=== PATIENT | female | born 1975 | race Caucasian/White ===

== ENCOUNTER 2023-01-14 07:37 | Outpatient (OUT) | payer BC, SELFPAY ==
[2023-01-14 07:52] LABS: Basophils Absolute Auto 0.1 10^3/uL (0.0-0.1); Basophils Percent Auto 0.8 % (0.2-2.0); Eosinophils Absolute Auto 0.1 10^3/uL (0.0-0.7); Hematocrit 37.8 % (36.0-48.0); Hemoglobin 12.7 g/dL (12.0-16.0); Immature Granulocytes Abs Auto 0.03 10^3/uL (0.00-0.03); Immature Granulocytes Pct Auto 0.5 % (0.0-0.5); Lymphocytes Absolute Auto 1.4 10^3/uL (1.2-3.8); Lymphocytes Percent Auto 23.8 % (20.5-60.0); Mean Corpuscular HGB Conc 33.6 g/dL (29.9-35.2); Mean Corpuscular Volume 86.3 fL (81.0-99.0); Mean Platelet Volume 9.7 fL (9.5-13.5); Monocytes Absolute Auto 0.5 10^3/uL (0.3-0.8); Monocytes Percent Auto 8.4 % (1.7-12.0); Neutrophils Absolute Auto 3.8 10^3/uL (1.4-6.5); Neutrophils Percent Auto 64.5 % (43.0-75.0); Platelet Count 320 10^3/uL (150-450); Red Blood Count 4.38 10^6/uL (4.20-5.40); Red Cell Distribution Width 12.9 % (11.0-15.0); White Blood Count 5.9 10^3/uL (4.0-11.0)
[2023-01-14 09:09] LABS: Alanine Aminotransferase 19 U/L (14-59); Albumin Globulin Ratio 1.1; Albumin Level 3.7 g/dL (3.4-5.0); Alkaline Phosphatase 44 U/L (46-116); Anion Gap 14.5; Aspartate Amino Transferase 11 U/L (15-37); BUN Creatinine Ratio 11.5; Bilirubin Total 0.4 mg/dL (0.2-1.0); Carbon Dioxide 23.7 mmol/L (21.0-32.0); Chloride 106 mmol/L (98-107); Chol HDL Ratio 3.7; Cholesterol 182 mg/dL (<=200); Estimated GFR (African America >60 (>=60); Estimated GFR (Non-African Ame >60 (>=60); Globulin 3.5 g/dL; Glucose 95 mg/dL (74-106); HDL Cholesterol 49 mg/dL (40-60); LDL Cholesterol Calculated 109.6 mg/dL; Potassium 4.2 mmol/L (3.5-5.1); Sodium 140 mmol/L (136-145); Total Protein 7.2 g/dL (6.4-8.2); Triglycerides 117 mg/dL (<=150); VLDL CHOLESTEROL 23.4 mg/dL
== END 2023-01-14 07:38 | disposition home or self-care (01) ==
PROVIDERS: PCP Family Medicine; Visit Provider Family Medicine
DX: Z00.00 Encounter for general adult medical examination without abnormal findings (principal)
CPT/HCPCS: 36415; 80053; 80061; 85025

== ENCOUNTER 2023-09-14 09:14 | Outpatient (OUT) | payer BC, SELFPAY ==
[2023-09-14 09:55] LABS: Basophils Absolute Auto 0.1 10^3/uL (0.0-0.1); Basophils Percent Auto 1.7 % (0.2-2.0); Eosinophils Absolute Auto 0.2 10^3/uL (0.0-0.7); Eosinophils Percent Auto 3.6 % (0.9-7.0); Hematocrit 43.3 % (36.0-48.0); Hemoglobin 13.6 g/dL (12.0-16.0); Immature Granulocytes Abs Auto 0.02 10^3/uL (0.00-0.03); Immature Granulocytes Pct Auto 0.4 % (0.0-0.5); Lymphocytes Absolute Auto 1.3 10^3/uL (1.2-3.8); Lymphocytes Percent Auto 25.2 % (20.5-60.0); Mean Corpuscular HGB Conc 31.4 g/dL (29.9-35.2); Mean Corpuscular Hemoglobin 27.5 pg (26.7-34.0); Mean Corpuscular Volume 87.7 fL (81.0-99.0); Mean Platelet Volume 9.7 fL (9.5-13.5); Monocytes Absolute Auto 0.4 10^3/uL (0.3-0.8); Monocytes Percent Auto 7.6 % (1.7-12.0); Neutrophils Absolute Auto 3.3 10^3/uL (1.4-6.5); Neutrophils Percent Auto 61.5 % (43.0-75.0); Platelet Count 317 10^3/uL (150-450); Red Blood Count 4.94 10^6/uL (4.20-5.40); Red Cell Distribution Width 13.2 % (11.0-15.0); White Blood Count 5.3 10^3/uL (4.0-11.0)
[2023-09-14 10:44] LABS: Free T4 0.92 ng/dL (0.76-1.46)
[2023-09-14 10:49] LABS: Anion Gap 15.5; BUN Creatinine Ratio 12.5; Calcium 9.3 mg/dL (8.5-10.1); Carbon Dioxide 24.7 mmol/L (21.0-32.0); Chloride 104 mmol/L (98-107); Estimated GFR (African America >60 (>=60); Estimated GFR (Non-African Ame >60 (>=60); Glucose 83 mg/dL (74-106); Potassium 4.2 mmol/L (3.5-5.1); Sodium 140 mmol/L (136-145); Thyroid Stimulating Hormone 1.722 uIU/mL (0.358-3.740)
[2023-09-15 04:07] LABS: FSH 25.1 mIU/mL (.); Luteinizing Hormone(LH) 7.5 mIU/mL (.)
[2023-09-18 22:06] LABS: Estrogens, Total 51 pg/mL (.)
== END 2023-09-14 09:15 | disposition home or self-care (01) ==
LOC: LAB 09:15
PROVIDERS: PCP Family Medicine; Visit Provider Family Medicine
DX: R63.5 Abnormal weight gain (principal); N91.2 Amenorrhea, unspecified; R53.83 Other fatigue
CPT/HCPCS: 36415; 80048; 82672; 83001; 83002; 84439; 84443; 85025

== ENCOUNTER 2023-11-09 20:57 | Outpatient (REF) | payer BC, SELFPAY ==
--- OUTSIDE RECORDS SUMMARY | 2023-11-09 21:03 | XMS_ITS | CCD ---
Author Organization [facility] Care Team Providers Care Cabin Man Name Role Phone REQUEST, NONE LISTED Primary Care Unavailable ENE MONCADA Admitting Unavailable ENE MONCADA Attending Unavailable ENE MONCADA Consulting Unavailable Oscar Villavicencio Consulting Unavailable NORMA LUKE Attending Unavailable NORMA LUKE Consulting Unavailable NORMA LUKE Admitting Unavailable NORMA LUKE Attending Unavailable NORMA LUKE Consulting Unavailable NORMA LUKE Admitting Unavailable REQUEST, NONE LISTED Primary Care Unavailable ENE MONCADA Admitting Unavailable ENE MONCADA Attending Unavailable ENE MONCADA Consulting Unavailable MD Norma Luke Primary Care Provider [phone] DO Alen Bolden Attending Provider [phone] Norma Luke Unavailable MD Norma Luke Primary Care Provider DO Alen Bolden Attending Provider Norma Luke Primary Care Unavailable Alen Bolden Attending Unavailable Alen Bolden Admitting Unavailable Medications Current Medications Medication Drug Class(es) Dates Sig (Normalized) Sig (Original) Accu-Chek (1 source) Start: 09-10-2023 Accu-Chek Active SUBCUT September 10, 2023 12:00am Accu-Chek Latanya - (2 sources) Start: 01-14-2023 Accu-Chek Latanya - as directed In Vitro daily for 30 days strips, meter, lancets. Dec, Active Levonorgestrel-Eth Estradiol 120-30 MCG/24HR (2 sources) Levonorgestrel-E th Estradiol 120-30 MCG/24HR 1 patch to skin Transdermal Active sertraline 50 mg oral tablet (3 sources) Serotonin Reuptake Inhibitor Start: 09-10-2023 take 1 tablet by mouth once daily Sertraline Active 1 TAB PO Daily September 10, 2023 12:00am Free[employer]Si tablet Orally Once a day; Note: Source Status: Taking; Provider: Marly Green ( ) take 1 tablet by mouth once mone y Sertraline HCl 50 MG 1 tablet Orally Once a day Active Problems Problem Classification Problem Date Documented Da te Episodic/Chronic Genitourinary symptoms and ill-defined conditions (3 sources) Dysuria; Translations: [Dysuria] Episodic Malaise and fatigue (2 sources) Fatigue; Translations: [Other fatigue] 09-13-2023 Episodic Menstrual disorders (2 sources) Amenorrhea; Translations: [Amenorrhea, unspecified] 09-13-2023 Chronic Other endocrine disorders (2 sources) Hypoglycemia; Translations: [Hypoglycemia, unspecified] Chronic Other endocrine disorders (1 source) Hypoglycemia, unspecified Chronic Other gastrointestinal disorders (2 sources) Diarrhea; Translations: [Diarrhea, unspecified] Episodic Other nutritional; endocrine; and metabolic disorders (1 source) Abnormal weight gain; Translations: [Abnormal weight gain] 09-13-2023 Episodic Other nutritional; endocrine; and metabolic disorders (1 source) Abnormal weight gain; Translations: [Abnormal weight gain] 09-13-2023 Episodic Other screening for suspected conditions (not mental disorders or infectious disease) (11 sources) Other specified abnormal findings of blood chemistry; Translations: [Abnormal results of liver function studies] Onset: 06-27-2020 Episodic Unclassified (1 source) Encounter for screening mammogram for malignant neoplasm of breast; Translations: [Encounter for screening mammogram for malignant neoplasm of breast] Onset: 07-06-2023 Results Test Name Value Interpretation Reference Range Facility MM screening mammo BI w/CADo n 07-06-2023 MM screening mammo BI w/CAD [facility] [place] [address] Mammography Report Signed Patient: Marcella Lee MR#: [id number] : 1975 Acct:[id number] Age/Sex: 48 / F ADM Date: 07/06/23 Loc: [place] Room: Type: [facility] Attending Dr: Alen Bolden DO Copies to: MD Alen Nieto DO Ordering Provider: Alen Bolden DO Date of Service: 07/06/23 MM/MM screening mammo BI w/CAD: screening;Other screening mammogram BILATERAL Screening Full Field digital mammogram with 3-D imaging. Full field digital CC and MLO imaging performed. Additional implant displaced views. CAD utilized. COMPARISON: 06/25/2022 HISTORY: Annual screening BREAST COMPOSITION: The breast parenchyma is heterogeneously dense. BENIGN BREAST CALCIFICATIONS: None VASCULAR CALCIFICATIONS: None DEVELOPING ARCHITECTURAL DISTORTION: None DEVELOPING BREAST NODULE: None DEVELOPING MALIGNANT CALCIFICATIONS: None AXILLARY LYMPH NODES: Normal POSTSURGICAL CHANGES: Bilateral breast implantation. MM/MM screening mammo BI w/CAD IMPRESSION: No mammographic evidence of malignancy. Routine follow-up recommended in one year. RESULT CODE: 2 Benign Findings(s) DENSITY CODE: 3 (approximately 51-75% glandular) FOLLOW UP: 1YR THE FALSE-NEGATIVE RATE OF MAMMOGRAPHY IS APPROXIMATELY 10%. IMAGING OF A PALPABLE ABNORMALITY MUST BE BASED ON CLINICAL GROUNDS. PATIENT WAS ENTERED INTO A REMINDER SYSTEM WITH A TARGET DUE DATE FOR THE NEXT MAMMOGRAM. Impression dictated by: Pardeep Davis M.D.07/06/2023 12:26 PM Dictation Location: [facility] Transcribed By: [facility] 07/06/23 1226 Dictated By: Pardeep Davis DO 07/06/23 1206 Signed By: 07/06/23 1226 [facility] JUVENTINO by IFAon 08-05-2020 Antinuclear Antibodies, IFA Negative Normal [facility] Comment on above: Result Comment: Nega tive <1:80 Borderline 1:80 Positive >1:80 Performed By: #### A NAIFMicki #### [facility] [address] [place] [address] Raúl Morales US SINGLE QUAD RT UPPERon US SINGLE QUAD RT UPPER CLINICAL HISTORY: Abnormal liver function tests. Right upper quadrant pain for several years. EXAMINATION: Right upper quadrant ultrasound: 08/13/2020. COMPARISON: None. FINDINGS: Static images from real-time examination using grayscale, color Doppler sonography are provided which demonstrate the pancreas at the level of the head measures 1.3 cm, at the junction of neck and body measures 0.6 cm and the distal body/tail measures 1.4 cm without focal abnormalities. The visualized portions of the inferior vena cava, abdominal aorta are normal. There is normal flow within the visualized intrahepatic portal vein. The visualized intrahepatic veins are patent as well. The craniocaudal dimension of the liver seems to be 13.9 cm. There is a small hypoechoic area in the right hepatic lobe measuring 0.6 x 0.6 x 0.7 cm. There are no other lesions in the liver. The common bile duct measures 6.5-7.9 mm. The patient is status post cholecystectomy. The visualized right kidney is normal with long axis measurement of 10.5 cm. IMPRESSION: 1. Status post cholecystectomy. 2. Probably a small 7 mm hemangioma in the right hepatic lobe. 3. The remaining study is within normal limits. Electronically authenticated by: OSCAR VILLAVICENCIO Date: 2020-08-03 09:52 Normal [facility] CERUOPLASMINon 08-02-2020 Ceruloplasmin 26.5 mg/dL Normal 19.0-39.0 [facility] Comment on above: Performed By: #### C EUROPL #### [facility] [address] [address] Raúl Morales HEP B COREon 08-02-2020 Hep B Core Ab, Tot Negative Normal Negative [facility] Comment on above: Performed By: #### H BSANS, HBCORE ####[facility] [address] [address]Raúl Morales HEP B SURFACE AB QUALITATIVE on 08-02-2020 Hep B Surface Ab, Qual Non Reactive Normal [facility] Comment on above: Result Comment: Non Reactive: Inconsistent with immunity, less than 10 mIU/mL Reactive: Consistent with immunity, greater than 9.9 mIU/mL Performed By: #### H BSABQL #### [facility] [address] [address] Raúl Morales HEP B SURFACE ANTIGEN SCREEN on 08-02-2020 HBsAg Screen Negative Normal Negative [facility] Comment on above: Performed By: #### H BSANS, HBCORE ####[facility] [address] [id number] Morales HEPATITIS C VIRUS AB W/ REFL EX QUANTon 08-02-2020 HCV AB <0.1 Normal 0.0-0.9 [facility] Comment on above: Performed By: #### H CVPCRR #### [facility] [address] [place], [place] [address] Raúl Morales Interpretation: Comment Normal [facility] Comment on above: Result Comment: Nega tive Not infected with HCV, unless recent infection is suspected or other evidence exists to indicate HCV infection. Performed By: #### H CVPCRR #### [facility] [address] [id number] Raúl Morales FERRITINon 08-01-2020 Ferritin [Mass/Vol] 21.0 ng/mL Normal 6.2-137.0 [facility] Comment on above: Performed By: #### F ERR ####[facility] [address] [place], [place] [address]N[place] Karen PROF 14(COMP METB)on 020 Albumin [Mass/Vol] 4.1 g/dL Normal 3.5-5.0 [facility] Comment on above: Performed By: #### C MP #### [facility] [address] [id number] Raúlkishan Vergaraen Albumin/Globulin [Mass ratio] 1.3 {ratio} Normal [facility] Comment on above: Performed By: #### C MP #### [facility] [address] [id number] Raúl Carmen ALP [Catalytic activity/Vol] 37 U/L Critically low 38-126 [facility] Comment on above: Performed By: #### C MP #### [facility] [address] [id number] Raúl Carmen ALT [Catalytic activity/Vol] 158 U/L Critically high 9-52 [facility] Comment on above: Performed By: #### C MP #### [facility] [address] [phone] Raúl Carmen Anion gap [Moles/Vol] 10.5 mmol/L Normal [facility] Comment on above: Performed By: #### C MP #### [facility] [address] [address] Raúl Carmen AST [Catalytic activity/Vol] 68 U/L Critically high 14-36 [facility] Comment on above: Performed By: #### C MP #### [facility] [address] [address] Raúl Carmen Bilirubin Ql (U) 0.5 mg/dL Normal 0.2-1.3 [facility] Comment on above: Performed By: #### C MP #### [facility] [address] [address] Raúl Carmen Calcium [Mass/Vol] 9.5 mg/dL Normal 8.4-10.2 [facility] Comment on above: Performed By: #### C MP #### [facility] [address] [place] [address] Raúl Carmen Chloride [Moles/Vol] 105 mmol/L Normal 98-107 [facility] Comment on above: Performed By: #### C MP #### [facility] [address] [address] Raúl Carmen CO2 [Moles/Vol] 26.9 mmol/L Normal 22.0-30.0 [facility] Comment on above: Performed By: #### C MP #### [facility] [address] [address] Raúl Carmen Creatinine [Mass/Vol] 1.06 mg/dL Critically high 0.52-1.04 [facility] Comment on above: Performed By: #### C MP #### [facility] [address] [address] Raúl Carmen EGFR-AF PAPUA [place] >60 Normal >=60 [facility] Comment on above: Performed By: #### C MP #### [facility] [address] [phone] Raúl Carmen EGFR-NON AF PAPUA [place] 56 mL/min/1.73m2 Critically low >=60 [facility] Comment on above: Performed By: #### C MP #### [facility] [address] [place], [place] [phone] Raúl Carmen Globulin (S) [Mass/Vol] 3.2 g/dL Normal [facility] Comment on above: Performed By: #### C MP #### [facility] [address] [phone] Raúl Carmen Glucose [Mass/Vol] 87 mg/dL Normal 74-106 [facility] Comment on above: Performed By: #### C MP #### [facility] [address] [place], [place] [address] Raúl Carmen Potassium [Moles/Vol] 4.4 mmol/L Normal 3.4-5.0 [facility] Comment on above: Performed By: #### C MP #### [facility] [address] [phone] Raúl Carmen Protein [Mass/Vol] 7.3 g/dL Normal 6.1-8.2 [facility] Comment on above: Performed By: #### C MP #### [facility] [address] [place], [place] [phone] Raúl Carmen Sodium [Moles/Vol] 138 mmol/L Normal 137-145 [facility] Comment on above: Performed By: #### C MP #### [facility] [address] [place], [place] [phone] Raúl Carmen Urea nitrogen [Mass/Vol] 12.0 mg/dL Normal 7.0-17.0 [facility] Comment on above: Performed By: #### C MP #### [facility] [address] [place], [place] [phone] Raúl Carmen Urea nitrogen/Creatinine [Mass ratio] 11.3 mg/mg Normal [facility] Comment on above: Performed By: #### C MP #### [facility] [address] [place] [address] Raúl Carmen CBC AUTO DIFFon 05-15-2020 Basophils (Bld) [#/Vol] 0.1 103/ul Normal 0.0-0.1 [facility] Comment on above: Performed By: #### C BC #### [facility] [address] [place], [place] [phone] Raúl Carmen Basophils/100 WBC (Bld) 1.0 % Normal 0.2-2.0 [facility] Comment on above: Performed By: #### C BC #### [facility] [address] [place] [address] Raúl Carmen Eosinophils (Bld) [#/Vol] 0.1 103/ul Normal 0.0-0.7 [facility] Comment on above: Performed By: #### C BC #### [facility] [address] [place], [place] [phone] Raúl Carmen Eosinophils/100 WBC (Bld) 2.3 % Normal 0.9-7.0 [facility] Comment on above: Performed By: #### C BC #### [facility] [address] [place] [address] Raúl Carmen Erythrocyte distribution width (RBC) [Ratio] 12.8 % Normal 11.0-15.0 [facility] Comment on above: Performed By: #### C BC #### [facility] [address] [place] [address] Raúl Carmen Hematocrit (Bld) [Volume fraction] 38.1 % Normal 36.0-48.0 [facility] Comment on above: Performed By: #### C BC #### [facility] [address] [place] [address] Raúl Carmen Hemoglobin (Bld) [Mass/Vol] 12.6 g/dL Normal 12.0-16.0 [facility] Comment on above: Performed By: #### C BC #### [facility] [address] [place] [address] Raúl Carmen IG # 0.02 10e3/ul Normal 0.00-0.03 [facility] Comment on above: Performed By: #### C BC #### [facility] [address] [place] [address] Raúl Carmen IG % 0.3 % Normal 0.0-0.5 [facility] Comment on above: Performed By: #### C BC #### [facility] [address] [place], [place] [phone] Raúl Carmen Lymphocytes (Bld) [#/Vol] 1.3 103/ul Normal 1.2-3.8 [facility] Comment on above: Performed By: #### C BC #### [facility] [address] [place], [place] [address] Raúl Carmen Lymphocytes/100 WBC (Bld) 21.8 % Normal 20.5-60.0 [facility] Comment on above: Performed By: #### C BC #### [facility] [address] [place], [place] [address] Raúl Carmen MANUAL DIFF REQ NO Normal [facility] Comment on above: Performed By: #### C BC #### [facility] [address] [place], [place] [address] Raúl Carmen MCH (RBC) [Entitic mass] 30.3 pg Normal 26.7-34.0 [facility] Comment on above: Performed By: #### C BC #### [facility] [address] [place] [address] Raúl Carmen MCHC (RBC) [Mass/Vol] 33.1 g/dL Normal 29.9-35.2 [facility] Comment on above: Performed By: #### C BC #### [facility] [address] [place] [address] Raúl Carmen MCV (RBC) [Entitic vol] 91.6 fL Normal 81.0-99.0 [facility] Comment on above: Performed By: #### C BC #### [facility] [address] [place] [address] Raúl Carmen Monocytes (Bld) [#/Vol] 0.5 103/ul Normal 0.3-0.8 [facility] Comment on above: Performed By: #### C BC #### [facility] [address] [place] [address] Raúl Carmen Monocytes/100 WBC (Bld) 8.1 % Normal 1.7-12.0 [facility] Comment on above: Performed By: #### C BC #### [facility] [address] [place], [place] [address] Ralú Carmen Neutrophils (Bld) [#/Vol] 4.1 103/ul Normal 1.4-6.5 [facility] Comment on above: Performed By: #### C BC #### [facility] [address] [phone] Raúl Morales Neutrophils/100 WBC (Bld) 66.5 % Normal 43.0-75.0 [facility] Comment on above: Performed By: #### C BC #### [facility] [address] [phone] Raúlkishan Morales Platelet mean volume (Bld) [Entitic vol] 9.5 fL Normal 9.5-13.5 [facility] Comment on above: Performed By: #### C BC #### [facility] [address] [place], [place] [phone] Raúl Carmen Platelets (Bld) [#/Vol] 231 103/ul Normal 150-450 [facility] Comment on above: Performed By: #### C BC #### [facility] [address] [place], [place] [phone] Raúl Vergaraen RBC (Bld) [#/Vol] 4.16 106/ul Critically low 4.20-5.40 [facility] Comment on above: Performed By: #### C BC #### [facility] [address] [place], [place] [phone] Raúlkishan Morales WBC (Bld) [#/Vol] 6.2 103/ul Normal 4.0-11.0 [facility] Comment on above: Performed By: #### C BC #### [facility] [address] [place], [place] [phone] Raúlkishan Morales LIPID PROFILEon 05-15-2020 CHOL-HDL RATIO NORM SEE BELOW Normal [facility] Comment on above: Result Comment: 3.3 - 4.4 LOW RISK 4.4 - 7.1 AVERAGE RISK 7.1 - 11.0 MODERATE RISK >11.0 HIGH RISK Performed By: #### T SH, LIPID, CMP #### [facility] [address] [place] [address] Raúl Carmen Cholesterol [Mass/Vol] 178 mg/dL Normal <=200 [facility] Comment on above: Performed By: #### T SH, LIPID, CMP #### [facility] [address] [place], [place] [address] Raúl Carmen Cholesterol in HDL [Mass/Vol] 51 mg/dL Normal [facility] Comment on above: Performed By: #### T ALICIA, LIPID, CMP #### [facility] [address] [phone] Raúl Carmen Cholesterol in HDL [Mass/Vol] > or = 60 mg/dl - LOW CARDIOVASCULAR RISK <40 mg/dl - HIGH CARDIOVASCULAR RISK Normal [facility] Comment on above: Performed By: #### T ALICIA, LIPID, CMP #### [facility] [address] [phone] Raúl Carmen Cholesterol in LDL [Mass/Vol] SEE BELOW Normal [facility] Comment on above: Result Comment: <100 mg/dl OPTIMAL 100 - 129 mg/dl NEAR OR ABOVE OPTIMAL 130 - 159 mg/dl BORDERLINE HIGH 160 - 189 mg/dl HIGH >190 mg/dl VERY HIGH Performed By: #### T ALICIA, LIPID, CMP #### [facility] [address] [phone] Raúl Carmen Cholesterol in LDL [Mass/Vol] 109.0 mg/dL Normal [facility] Comment on above: Performed By: #### T ALICIA, LIPID, CMP #### [facility] [address] [phone] Raúl Carmen Cholesterol.total/Ch olesterol in HDL [Mass ratio] 3.5 {ratio} Normal [facility] Comment on above: Performed By: #### T ALICIA, LIPID, CMP #### [facility] [address] [phone] Raúl Carmen Triglyceride [Mass/Vol] 90 mg/dL Normal <=150 [facility] Comment on above: Performed By: #### T ALICIA, LIPID, CMP #### [facility] [address] [phone] Raúl Carmen VLDL CALC 18.0 mg/dL Normal [facility] Comment on above: Performed By: #### T ALICIA, LIPID, CMP #### [facility] [address] [phone] Raúl Carmen PROF 14(COMP METB)on 020 Albumin [Mass/Vol] 3.6 g/dL Normal 3.5-5.0 [facility] Comment on above: Performed By: #### T ALICIA LIPID, CMP #### [facility] [address] [phone] Raúl Carmen Albumin/Globulin [Mass ratio] 1.1 {ratio} Normal [facility] Comment on above: Performed By: #### T ALICIA LIPID, CMP #### [facility] [address] [place], [place] [address] Raúl Carmen ALP [Catalytic activity/Vol] 32 U/L Critically low 38-126 [facility] Comment on above: Performed By: #### T ALICIA LIPID, CMP #### [facility] [address] [address] Raúl Carmen ALT [Catalytic activity/Vol] 153 U/L Critically high 9-52 [facility] Comment on above: Performed By: #### T ALICIA LIPID, CMP #### [facility] [address] [address] Raúl Carmen Anion gap [Moles/Vol] 12.2 mmol/L Normal [facility] Comment on above: Performed By: #### T ALICIA LIPID, CMP #### [facility] [address] [phone] Raúl Carmen AST [Catalytic activity/Vol] 53 U/L Critically high 14-36 [facility] Comment on above: Performed By: #### T ALICIA LIPID, CMP #### [facility] [address] [phone] Raúl Carmen Bilirubin Ql (U) 0.6 mg/dL Normal 0.2-1.3 [facility] Comment on above: Performed By: #### T ALICIA LIPID, CMP #### [facility] [address] [phone] Raúl Carmen Calcium [Mass/Vol] 8.8 mg/dL Normal 8.4-10.2 [facility] Comment on above: Performed By: #### T ALICIA, LIPID, CMP #### [facility] [address] [address] Raúl Carmen Chloride [Moles/Vol] 107 mmol/L Normal 98-107 [facility] Comment on above: Performed By: #### T ALICIA, LIPID, CMP #### [facility] [address] [address] Raúl Carmen CO2 [Moles/Vol] 25.9 mmol/L Normal 22.0-30.0 [facility] Comment on above: Performed By: #### T ALICIA, LIPID, CMP #### [facility] [address] [address] Raúl Carmen Creatinine [Mass/Vol] 0.93 mg/dL Normal 0.52-1.04 [facility] Comment on above: Performed By: #### T ALICIA, LIPID, CMP #### [facility] [address] [place] [address] Raúl Carmen EGFR-AF PAPUA [place] >60 Normal >=60 [facility] Comment on above: Performed By: #### T ALICIA, LIPID, CMP #### [facility] [address] [address] Raúl Carmen EGFR-NON AF PAPUA [place] >60 Normal >=60 [facility] Comment on above: Performed By: #### T ALICIA, LIPID, CMP #### [facility] [address] [address] Raúl Carmen Globulin (S) [Mass/Vol] 3.2 g/dL Normal [facility] Comment on above: Performed By: #### T ALICIA, LIPID, CMP #### [facility] [address] [address] Raúl Carmen Glucose [Mass/Vol] 90 mg/dL Normal 74-106 [facility] Comment on above: Performed By: #### T ALICIA, LIPID, CMP #### [facility] [address] [place] [address] Raúl Carmen Potassium [Moles/Vol] 4.1 mmol/L Normal 3.4-5.0 [facility] Comment on above: Performed By: #### T ALICIA, LIPID, CMP #### [facility] [address] [phone] Raúl Carmen Protein [Mass/Vol] 6.8 g/dL Normal 6.1-8.2 [facility] Comment on above: Performed By: #### T ALICIA, LIPID, CMP #### [facility] [address], [place] [address] Arúl Carmen Sodium [Moles/Vol] 141 mmol/L Normal 137-145 [facility] Comment on above: Performed By: #### T ALICIA, LIPID, CMP #### [facility] [address] [place] [address] Raúl Carmen Urea nitrogen [Mass/Vol] 9.0 mg/dL Normal 7.0-17.0 [facility] Comment on above: Performed By: #### T ALICIA LIPID, CMP #### [facility] [address] [place], [place] [id number] Raúl Carmen Urea nitrogen/Creatinine [Mass ratio] 9.7 mg/mg Normal [facility] Comment on above: Performed By: #### T ALICIA, LIPID, CMP #### [facility] [address] [place], [place] [address] Raúlkishan Vergaraen TSHon 05-15-2020 TSH Qn SEE BELOW Normal [facility] Comment on above: Result Comment: <0.3 4 UIU/ml HYPERTHYROID 0.34-5.60 UIU/ml EUTHYROID >5.60 UIU/ml HYPOTHYROID Performed By: #### T ALICIA, LIPID, CMP #### [facility] [address] [place], [place] [id number] Raúl Acrmen TSH Qn 1.553 uIU/mL Normal 0.470-4.680 [facility] Comment on above: Performed By: #### T ALICIA, LIPID, CMP #### [facility] [address] [place], [place] [id number] Raúl Carmen Vital Signs Date Time Vital Sign Value Performing Clinician Facility 09-13-2023 10:45-0500 Body height 171.45 cm MD Norma Luke Work Phone: [facility] [place] 09-13-2023 10:45-0500 Body mass index (BMI) [Ratio] 27 kg/m2 MD Norma Luke Work Phone: [facility] [place] 09-13-2023 10:45-0500 Body weight 79.49 kg MD Norma Luke Work Phone: [facility] [place] 09-13-2023 10:45-0500 Diastolic blood pressure 81 mm[Hg] MD Norma Luke Work Phone: [facility] [place] 09-13-2023 10:45-0500 Heart rate 91 /min MD Norma Luke Work Phone: [facility] [place] 09-13-2023 10:45-0500 Systolic blood pressure 134 mm[Hg] MD Norma Luke Work Phone: [facility] [place] 01-13-2023 11:00-0400 Body height 171.45 cm Norma Luke Other [facility] Other 01-13-2023 11:00-0400 Body mass index (BMI) [Ratio] 26.23 kg/m2 Norma Luke Other [facility] Other 01-13-2023 11:00-0400 Body weight 77.11 kg Norma Luke Other [facility] Other 01-13-2023 11:00-0400 Diastolic blood pressure 76 mm[Hg] Norma Luke Other [facility] Other 01-13-2023 11:00-0400 Systolic blood pressure 132 mm[Hg] Norma Luke Other [facility] Other Encounters Encounter Date Encounter Type Care Provider Facility Start: 09-13-2023 End: 09-13-2023 ambulatory MD Norma Luke Work Phone: [facility] Work Phone: Start: 09-13-2023 End: 09-13-2023 Patient encounter procedure MD Norma Luke Work Phone: [facility] Work Phone: Start: 07-06-2023 End: 07-06-2023 ambulatory Norma Luke Facility:[facility] [place] Start: 07-06-2023 End: 07-06-2023 ambulatory MD Norma Luke Work Phone: [facility] Work Phone: Start: 07-06-2023 End: 07-06-2023 Patient encounter procedure MD Norma Luke Work Phone: [facility] Work Phone: Start: 01-14-2023 End: 01-14-2023 ambulatory Norma Luke Other [facility] Other Start: 01-14-2023 Telephone encounter Norma Luke [facility] Start: 01-13-2023 End: 01-13-2023 ambulatory Norma Luke Other [facility] Other Start: 01-13-2023 Encounter for genera l adult medical examination without abnormal findings Norma Luke [facility] Start: 01-13-2023 Periodic preventive med est patient 40-64yrs Norma Luke [facility] Start: 06-25-2022 End: 06-25-2022 ambulatory MD Norma Luke Work Phone: [facility] Work Phone: Start: 06-25-2022 End: 06-25-2022 Patient encounter procedure MD Norma Luke Work Phone: [facility] Start: 08-03-2020 End: 08-04-2020 Patient encounter procedure NONE LISTED REQUEST Facility: Start: 08-01-2020 End: 08-02-2020 Patient encounter procedure NONE LISTED REQUEST Facility: Start: 06-27-2020 End: 06-28-2020 Patient encounter procedure NORMA LUKE Facility: Start: 05-22-2020 Encounter for genera l adult medical examination without abnormal findings NONE LISTED REQUEST [facility] Start: 05-15-2020 End: 05-16-2020 Patient encounter procedure NORMA LUKE Facility:[facility]1 Encounter for genera l adult medical examination without abnormal findings NONE LISTED REQUEST [facility] Procedures Date Procedure Procedure Detail Performing Clinician Start: 07-06-2023 Screening mammograph y of bilateral breasts MD Norma Luke Work Phone: Start: 06-25-2022 Screening mammograph y of bilateral breasts MD Norma Luke Work Phone: Plan of Treatment Date Care Activity Detail Author Estrogen [Mass/volum e] in Serum or Plasma [facility] enter Lutropin [Units/volu me] in Serum or Plasma [facility] enter [facility] Immunizations Immunization Date Immunization Notes Care Provider Fa cili 05-14-2020 influenza virus vaccine, unspecified formulation MD Norma Luke Work Phone: [facility] [place] Payers Date Payer Category Payer Self-pay [id number] 2022 Unknown [id number] 1975 Unknown [id number] 2.16.84 [id number] 1975 Unknown [id number] 2.16.84 [id number] 1975 Unknown [id number] .16.84 [id number] 1975 Unknown [id number] 2.16.84 [id number] 1960 Private Health Insurance [id number] Unknown O [id number] Unknown [id number] 2.16.8 [id number] Social History Date Type Detail Facility Tobacco smoking status NHIS Unknown if ever smoked [facility] Work Phone: Start: 1975 Sex Assigned At Female F [facility] Sex Assigned At Sex Assigned At Bir th [facility] Other Start: 01-13-2023 Tobacco smoking status NHIS Never smoked tobacco (finding) [facility] [place] Evaluation note 01-13-2023 Note Date & Type Note Facility 01-13-2023 Evaluation note Encounter Date Diagnosis Assessment Notes Dec, Well adult exam (ICD-10 - Z00.00) We have discussed the necessity of following up with PCP regularly as well as specialists, as needed. Discussed F/U with dentistry and optometry at least yearly. Discussed all preventative measures/ cancer screenings as applicable to this patient. Emphasized the importance of a reduced fat, low carb diet to promote heart health and controlled blood sugars. Reviewed social history and ensured patient is safe within the home today. Pt denies any abuse of alcohol, nicotine, caffeine or recreational drugs. I have ensured patient is of stable mental and physical health today. We have discussed appropriate F/U schedule as well as blood work and vaccinations that apply. All questions answered and patient is sent home pleased, without concerns. Dec, Dysuria (ICD-10 - R30.0) Will treat accordingly. Increase hydration. Dec, Hypoglycemia (ICD-10 - E16.2) Pt has symptoms of hypoglycemia. Check labs. Recommended checking glucose at home at times. Dec, Colon cancer screening (ICD-10 - Z12.11) Declines c-scope. Agrees to cologuard test. [facility] Other Evaluation note Note Date & Type Note Facility Evaluation note No assessment information availa ble [facility] Work Phone: Evaluation note Note Date & Type Note Facility Evaluation note No Information [facility] Other Evaluation note Note Date & Type Note Facility Evaluation note Diagnosis Onset Date Abnormal weight gain acute Amenorrhea acute Fatigue acute [facility] Work Phone: History general Narrative - Reported Note Date & Type Note Facility History general Narrative - Reported Type Surgical History cholescystectomy 2005 Surgical History BREAST AUGMENTATION 2009 [facility] Other Summary Purpose Family History No Family History Records FoundNo Family History Records Found Advance Directives Advance Directive Response Recorded Date/ Time Advance Directives No March 9:17am Chief Complaint and Reason for Visit Chief Complaint Screening Chief Complaint Z12.31 Chief Complaint Z12.31 check up Reason for Visit Abnormal weight gain Amenorrhea Fatigue Additional Source Comments INFORMATION SOURCE (unrecogn ized section and content) DATE CREATED AUTHOR 08/09/2020 [facility] DATE CREATED AUTHOR AUTHOR'S ORGANIZ ATION 07/08/2023 [facility] Care Teams (unrecognized sec tion and content) Team Status: Active Member Role Status Dates Norma Luke MD Primary Care Provider Active Team Status: Inactive Member Role Status Dates Norma Luke MD Primary Care Provider Active Alen Bolden DO Attending Provider Active Team Status: Inactive Member Role Status Dates Norma Luke MD Primary Care Provider Active Start: July 06, 2023 End: July 06, 2023 Alen Bolden DO Attending Provider Active Sta rt: July 06, 2023 End: July 06, 2023 Team Status: Inactive Member Role Status Swetha Luke MD Primary Care Provide r, Attending Provider Active Start: September 13, 2023 End: September 13, 2023 Goals (unrecognized section and content) Goals may be documented in a n alternate sectionNo InformationNo InformationGoals may be documented in an alternate sectionGoals may be documented in an alternate section REASON FOR VISIT (unrecogniz ed section and content) [facility] FOR RECORDS PERTAINING TO PATIENTS WHO ARE OR HAVE BEEN ENROLLED IN A CHEMICAL DEPENDENCY/SUBSTANCEABUSE PROGRAM, SOME INFORMATION MAY BE OMITTED. This clinical summary was aggregated from multiple sources. Caution should be exercised in using it in the provision of clinical care. This summary normalizes information from multiple sources, and as a consequence, information in this document may materially change the coding, format and clinical context of patient data. In addition, data may be omitted in some cases. CLINICAL DECISIONS SHOULD BE BASED ON THE PRIMARY CLINICAL RECORDS. [facility] [employer] [facility]. provides no warranty or guarantee of the accuracy or completeness of information in this document.
[2023-11-16 14:09] LABS: Age Gdln ACOG Testing Note (.); HPV Aptima Negative (Negative); IGP, Aptima HPV, rfx 16/18,45 Note (.)
== END 2023-11-09 20:58 | disposition home or self-care (01) ==
LOC: LAB 20:57
PROVIDERS: PCP Family Medicine; Visit Provider Physician Assistant
DX: Z01.419 Encounter for gynecological examination (general) (routine) without abnormal findings (principal)
CPT/HCPCS: 87624; G0145

== ENCOUNTER 2024-10-25 12:54 | Outpatient (OUT) | payer BC, SELFPAY ==
--- NOTE | 2024-10-25 12:59 | US_ITS ---
The [address] [address] Patient Name: SOTO DE LOS SANTOS MRN: [id number] date: 1975 Sex: F Assigned Patient Location: US Current Patient Location: US Accession/Order Number: [id number] Exam Date: 10/25/2024 14:22 Report Date: 10/25/2024 14:25 At the request of: INDIA ARANDA MD Procedure: US chest Ultrasound of the soft tissue of the left upper back History of palpable lump in the left upper back for one month duration. In the region of palpable abnormality there is a well-defined isoechoic mass measuring 4.4 x 3.5 x 0.7 cm. There is no fluid collection within the mass. There is no regions of abnormal vascularity. US/US chest IMPRESSION: Identification of fatty tumor in region of palpable abnormality in the left upper back. 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 Liposarcoma cannot be excluded with imaging. May be consideration for surgical consultation. Impression dictated by: Pardeep Davis M.D.10/25/2024 2:25 PM Dictation Location: [place] [address] Electronically authenticated by: [id number] Y Date: 10/25/2024 14:25
== END 2024-10-25 12:55 | disposition home or self-care (01) ==
LOC: US 12:55
PROVIDERS: PCP Family Medicine; Visit Provider Family Medicine
DX: R22.2 Localized swelling, mass and lump, trunk (principal)
CPT/HCPCS: 76604

== ENCOUNTER 2024-11-14 12:50 | Outpatient (REF) | payer BC, SELFPAY ==
[2024-11-17 15:09] LABS: Age Gdln ACOG Testing Note (.); HPV Aptima Negative (Negative); IGP, Aptima HPV, rfx 16/18,45 Note (.)
== END 2024-11-14 12:51 | disposition home or self-care (01) ==
LOC: LAB 12:50
PROVIDERS: PCP Family Medicine; Visit Provider Obstetrics & Gynecology
DX: Z01.419 Encounter for gynecological examination (general) (routine) without abnormal findings (principal)
CPT/HCPCS: 87624; 88175

== ENCOUNTER 2025-01-23 08:53 | Outpatient (OUT) | payer BC, SELFPAY ==
--- OUTSIDE RECORDS SUMMARY | 2025-01-23 08:54 | XMS_ITS | Encounter Summary ---
Author Organization [facility] Address [address] [place] [address] Care Team Providers Care Front End Drupal Developer Name Role Phone Norma Luke MD Primary Care Provider [phone] Encounter Details Date Type Department Care Team (Late st Contact Info) Description 11/29/2024 Orders Only [facility] [address] [place] [phone] Earline Mugruia LPN [address] [facility] [place] [address] Social History Tobacco Use Types Packs/Day Years Used Date Smoking Tobacco: Never Assessed Comments No Sex and Gender Information Value Date Recorded Sex Assigned at Not on file Legal Sex Female 7:16 PM EDT Gender Identity Female 10/07/2022 7:16 PM EDT Sexual Orientation Not on file documented as of this encounter Plan of Treatment Upcoming Encounters Date Type Department Care Team (Late st Contact Info) Description 11/20/2025 10:00 AM EDT Office Visit [facility] [address] [place] [phone] Carlos Williamson DO [address] [place], [place] [id number] documented as of this encounter Procedures Procedure Name Priority Date/Time Associated Diagnosis Comments PAP SMEAR Routine 11/14/2024 12:00 AM EDT documented in this encounter Results * Pap Smear (11/14/2024 12:00 AM EDT) Swab Cervical swab / Unknown us Clay Nurse [facility] LAB CYTOLOGY ORDERABLES Final Result EXTERNAL LAB documented in this encounter Visit Diagnoses Not on filedocumented in this encounter Care Teams Front End Drupal Developer Relationship Specialty Start Date End Date Norma Luke MD [address] [place] [address] PCP - General Family Medicine 11/15/24 documented as of this encounter
--- OUTSIDE RECORDS SUMMARY | 2025-01-23 08:54 | XMS_ITS | Encounter Summary ---
Author Organization [facility] Address [address] [place] [address] Care Team Providers Care Bowling Or Skating Front Desk Clerk Name Role Phone Norma Luke MD Primary Care Provider [phone] Norma Luke MD Primary Care Provider [phone] Encounter Details Date Type Department Care Team (Late Contact Info) Description 07/06/2023 External Result Encounter [facility] External Department Unsolicited Alen Bolden, DO [address] [place] [address] Social History Tobacco Use Types Packs/Day Years Used Date Smoking Tobacco: Never Assessed Comments Unknown Sex and Gender Information Value Date Recorded Sex Assigned at Not on file Legal Sex Female 7:16 PM EDT Gender Identity Female 10/07/2022 7:16 PM EDT Sexual Orientation Not on file documented as of this encounter Plan of Treatment Upcoming Encounters Date Type Department Care Team (Late st Contact Info) Description 11/20/2025 10:00 AM EDT Office Visit [facility] [address] [place] [phone] Carlos Williamson DO [address] [place] [address] documented as of this encounter Procedures Procedure Name Priority Date/Time Associated Diagnosis Comments BI MAMMOGRAM SCREENING BILATERAL 07/06/2023 12:06 PM EST documented in this encounter Results * Bilateral screening mammogram (07/06/2023 12:06 PM EST) Anatomical Region Laterality Modality Breast Bilateral Mammography 07/06/2023 12:0 6 PM EST Impressions 07/06/2023 3:15 PM EST No mammographic evidence of malignancy. Routine follow-up [...] Pardeep Davis M.D.07/06/2023 12:26 PM Dictation Location: [facility] Transcribed By: [facility] 07/06/23 1226 Dictated By: Pardeep Davis DO 07/06/23 1206 Signed By: <Electronically signed by Pardepe Davis DO in OV> 07/06/23 1226 Narrative 07/06/2023 3:15 PM EST [facility] [address] [place] [address] Mammography Report Signed Patient: Marcella Lee MR#: [id number] : 1975 Acct:[id number] Age/Sex: 48 / F ADM Date: 07/06/23 Loc: [place] Room: Type: [facility] Attending Dr: Alen Bolden DO Copies to: [...] breast implantation. MM/MM screening mammo BI w/CAD Procedure Note Radiology, Radiologist, - 07/06/2023 [facility] [address] [place] [address] Mammography Report Signed Patient: Marcella Lee MMR#: [id number] : 1975Acct:[id number] Age/Sex: 48 / FADM Date: 07/06/23 Loc: [place] Room:Type: [facility] Attending Dr: Alen Bolden DO Copies to: MD Alen Nieto DO Ordering Provider: Alen Bolden DO Date of Service: 07/06/23 MM/MM screening mammo BI w/CAD: screening;Otherscreening mammogram BILATERAL Screening Full Field digital mammogram with 3-D imaging. Full field digital CC and MLO imaging performed. Additional implantdisplaced views. CAD utilized. COMPARISON: 06/25/2022 HISTORY: Annual screening BREAST COMPOSITION: The breast parenchyma is heterogeneously dense. BENIGN BREAST CALCIFICATIONS: None VASCULAR CALCIFICATIONS: None DEVELOPING ARCHITECTURAL DISTORTION: None DEVELOPING BREAST NODULE: None DEVELOPING MALIGNANT CALCIFICATIONS: None AXILLARY LYMPH NODES: Normal POSTSURGICAL CHANGES: Bilateral breast implantation. MM/MM screening mammo BI w/CAD IMPRESSION: No mammographic evidence of malignancy. Routine follow-up recommended inone year. RESULT CODE: 2 Benign Findings(s) DENSITY CODE: 3 (approximately 51-75% glandular) FOLLOW UP: 1YR THE FALSE-NEGATIVE RATE OF MAMMOGRAPHY IS APPROXIMATELY 10%. IMAGING OF A PALPABLE ABNORMALITY MUST BE BASED ON CLINICAL GROUNDS. PATIENT WAS ENTERED INTO A REMINDER SYSTEM WITH A TARGET DUE DATE FOR THENEXT MAMMOGRAM. Impression dictated by: Pardeep Davis M.D.07/06/2023 12:26 PM Dictation Location: [facility] Transcribed By: [facility] 07/06/23 1226 Dictated By: Pardeep Davis DO 07/06/23 1206 Signed By: <Electronically signed by Pardeep Davis DO in OV> 07/06/23 1226 us Alen Bolden DO IMG BI PROCEDURES Final Resul t documented in this encounter Visit Diagnoses Not on filedocumented in this encounter Care Teams Bowling Or Skating Front Desk Clerk Relationship Specialty Start Date End Date Norma Luke MD PCP - General Family Medicine 10/08/23 11/14/24 Norma Luke MD [address] [place] [phone] PCP - General Family Medicine 11/15/24 documented as of this encounter
--- OUTSIDE RECORDS SUMMARY | 2025-01-23 08:54 | XMS_ITS | Encounter Summary ---
Author Organization [facility] Address [address] [place] [address] Care Team Providers Care Pre Parole Counseling Aide Name Role Phone Norma Luke MD Primary Care Provider [phone] Norma Luke MD Primary Care Provider [phone] Encounter Details Date Type Department Care Team (Late Contact Info) Description 08/02/2024 Abstract [facility] [address] [place] [phone] Carlos Williamson DO [address] [place] [address] Social History Tobacco Use Types Packs/Day Years Used Date Smoking Tobacco: Never Assessed Comments Unknown Sex and Gender Information Value Date Recorded Sex Assigned at Not on file Legal Sex Female 7:16 PM EDT Gender Identity Female 10/07/2022 7:16 PM EDT Sexual Orientation Not on file documented as of this encounter Plan of Treatment Upcoming Encounters Date Type Department Care Team (Late Contact Info) Description 11/20/2025 10:00 AM EDT Office Visit [facility] [address] [place] [phone] Carlos Williamson DO [address] [place], [place] [phone] documented as of this encounter Visit Diagnoses Not on filedocumented in this encounter Care Teams Pre Parole Counseling Aide Relationship Specialty Start Date End Date Norma Luke MD PCP - General Family Medicine 10/08/23 11/14/24 Norma Luke MD [address] [place] [phone] PCP - General Family Medicine 11/15/24 documented as of this encounter
--- OUTSIDE RECORDS SUMMARY | 2025-01-23 08:54 | XMS_ITS | Clinical Summary ---
Author Organization [facility] Address [address] [place] [address] Care Team Providers Care Bottom Ironer Name Role Phone Norma Luke MD Primary Care Provider [phone] Allergies No known active allergies Medications sertraline (Zoloft) 50 MG tablet Take 50 mg by mouth Daily Active phentermine 37.5 MG capsule 10/03/2024 Active Active Problems Problem Noted Date Diagnosed Date Localized swelling, mass and lump, trunk 025 Encounters Date Type Department Care Team Description 12/07/2024 3:30 PM EDT Consult [facility] [address] [place] [phone] Aaron Frausto, DO Lipoma of torso 12/07/2024 Travel 12/06/2024 Travel 11/29/2024 Orders Only [facility] [address] [place] [address] Earline Murguia LPN 11/27/2024 Travel 11/24/2024 Travel 11/15/2024 Travel 11/14/2024 10:00 AM EDT Office Visit [facility] [address] [place] [address] Guera Vaughan PA Well woman exam with routine gynecological exam; Osteoporosis, post-menopausal ; Breast cancer screening by mammogram 11/14/2024 Clinisync Result Encounter [facility] External Department Unsolicited Carlos Williamson DO 11/14/2024 Bamboo flowsheet [facility] [address] [place] [phone] Guera Vaughan PA 11/07/2024 Travel from Last 3 Months Family History Medical History Relation Name Comments Colon cancer Maternal Grandfather Gerson Diabetes Maternal Grandfather Gerson Breast cancer Mother Candelaria Gibson Ovarian cancer Neg Hx Pancreatic cancer Neg Hx Relation Name Status Comments Brother 1 brother Father Alive Maternal Grandfather Gerson Alive Mother Candelaria Gibson Alive Sister no sisters Social History Tobacco Use Types Packs/Day Years Used Date Smoking Tobacco: Former Cigarettes Smokeless Tobacco: Never Comments No Sex and Gender Information Value Date Recorded Sex Assigned at Not on file Legal Sex Female 7:16 PM EDT Gender Identity Female 10/07/2022 7:16 PM EDT Sexual Orientation Not on file Last Filed Vital Signs Vital Sign Reading Time Taken Comments Blood Pressure 122/74 12/07/2024 3:17 PM EDT Pulse - - Temperature - - Respiratory Rate - - Oxygen Saturation - - Inhaled Oxygen Concentration - - Weight 75.3 kg (166 lb) 12/07/2024 3:17 PM EDT Height 174 cm (5' 8.5 ) 12/07/2024 3:17 PM EDT Body Mass Index 24.87 12/07/2024 3:17 PM EDT Plan of Treatment Upcoming Encounters Date Type Department Care Team (Late st Contact Info) Description 11/20/2025 10:00 AM EDT Office Visit [facility] [address] [place] [phone] Carlos Williamson, [address] [place] [address] Health Maintenance Due Date Last Done Comments CT Colonography 1975 Colonoscopy 1975 Colorectal Cancer Screening 1975 FIT-DNA 1975 FIT 1975 FOBT 1975 Sigmoidoscopy 1975 Mammogram 07/06/2024 07/06/2023, 12/0 07/2021, 06/24/2021, Additional history exists Influenza Vaccine (Season Ended) 2025 04/25/20 20 Pap Smear 11/15/2027 11/14/2024, 0412/2023, 10/10/2022, Additional history exists Cervical Cancer Screening 11/08/2028 HPV/Cotest 11/08/2028 11/09/2023 Procedures Procedure Name Priority Date/Time Associated Diagnosis Comments IGP,APTIMA HPV,AGE GDLN Routine 11/14/2024 9:57 AM EDT PAP SMEAR Routine 11/14/2024 12:00 AM EDT THIN PREP TIS PAP AND HR HPV DNA Routine 11/09/2023 1:10 PM EDT Well woman exam with routine gynecological exam BI MAMMOGRAM SCREENING BILATERAL 07/06/2023 12:06 PM EST from Last 3 Months or Most Recently Relevant to Health Maintenance Results * IGP,APTIMA HPV,AGE GDLN (11/14/2024 9:57 AM EDT) AGE GDLN ACOG TESTING Note . [facility] Comment: TESTS RESULT FLAG UNITS REF RANGE LAB Clinician Provided Cytology Information Source.............Cervix;Endocervix No. of containers..01 ThinPrep Vial Age Pepe SINGLETARY Rubina... -64 FLAG LEGEND: L-Low Normal,H-High Normal,LL-Alert Low,HH-Alert High <-Panic Low,>-Panic High,A-Abnormal,AA-Critical Abnormal Performed at: 01 =G [facility] [place] [address] [facility] [place] [address] Bouchra Haines MD, IGP, APTIMA HPV, RFX 16/18,45 Note . [facility] Comment: TESTS RESULT FLAG UNITS REF RANGE LAB DIAGNOSIS: 02 NEGATIVE FOR INTRAEPITHELIAL LESION OR MALIGNANCY. Specimen adequacy: 02 Satisfactory for evaluation. Endocervical and/or squamous metaplastic cells (endocervical component) are present. Areas of partially obscuring inflammatory exudate are present. Performed by: 02 Viri Crooks Fire Equipment Inspector ([facility]) . 02 Note: Note 02 The Pap smear is a screening test designed to aid in the detection of premalignant and malignant conditions of the uterine cervix. It is not a diagnostic procedure and should not be used as the sole means of detecting cervical cancer. Both false-positive and false-negative reports do occur. Test Methodology: Note 02 [employer]R) Cv Tech was unable to read this specimen. Therefore a manual review was performed. FLAG LEGEND: L-Low Normal,H-High Normal,LL-Alert Low,HH-Alert High <-Panic Low,>-Panic High,A-Abnormal,AA-Critical Abnormal Performed at: 02 WB [facility] [place] [address] [place] [address] Bouchra Haines MD, HPV Genotype Reflex Note 02 Criteria not met, HPV Genotype not performed. Criteria not met, HPV Genotype not performed. HPV APTIMA Negative Negative [facility] Comment: This nucleic acid amplification test detects fourteen high- risk HPV types (16,18,31,33,35,39,45,51,52,56,58,59,66,68) without differentiation. Performed at: =[address] [id number] Auto Bumper Mechanic: Bouchra Haines MD, Phone: [phone] Performed at: [address] [id number] Auto Bumper Mechanic: Bouchra Haines MD, Phone: [phone] 11/14/2024 9:57 AM EDT 11/14/2024 12:54 PM EDT Narrative CLINISYNC - 11/17/2024 3:09 PM EDT BRUSH-SPATULA CERVIX ENDOCERVIX Carlos Williamson DO LAB BLOOD ORDERABLES Final Resul t Performing Organization Address [facility] de Phone Number [facility] * Pap Smear (11/14/2024 12:00 AM EDT) Swab Cervical swab / Unknown Clay [facility] Ob LAB CYTOLOGY ORDERABLES Final Result Performing Organization Address [facility] Co de Phone Number EXTERNAL LAB * THIN PREP TIS PAP AND HR HPV DNA (11/09/2023 1:10 PM EDT) Swab 11/09/2023 1:10 PM EDT Guera RESENDIZ LAB CYTOLOGY ORDERABLES Final Re sult Performing Organization Address [facility] Co de Phone Number EXTERNAL LAB * Bilateral screening mammogram (07/06/2023 12:06 PM [...] Pardeep Davis M.D.07/06/2023 12:26 PM Dictation Location: [facility] Transcribed By: PWS 07/06/23 1226 Dictated By: Pardeep Davis DO 07/06/23 1206 Signed By: <Electronically signed by Pardeep Davis DO in OV> 07/06/23 1226 Narrative 07/06/2023 3:15 PM [facility] [place] [address] Mammography Report Signed Patient: Marcella Lee MR#: [id number] : 1975 Acct:[id number] Age/Sex: 48 / F ADM Date: 07/06/23 Loc: [place] Room: Type: [facility] Attending Dr: Alen Bolden DO Copies to: [...] mammo BI w/CAD Procedure Note Radiology, Radiologist, MD - 07/06/2023 [facility] [address] [place] [id number] Mammography Report Signed Patient: Marcella Lee MMR#: [id number] : 1975Acct:[id number] Age/Sex: 48 / FADM Date: 07/06/23 Loc: [place] Room:Type: [facility] Attending Dr: Alen Bolden DO Copies to: [...] Pardeep Davis M.D.07/06/2023 12:26 PM Dictation Location: [facility] Transcribed By: [facility] 07/06/23 1226 Dictated By: Pardeep Davis DO 07/06/23 1206 Signed By: <Electronically signed by Pardeep Davis DO in OV> 07/06/23 1226 us Alen Bolden DO IMG BI PROCEDURES Final Resul t from Last 3 Months or Most Recently Relevant to Health Maintenance Insurance [employer] Care Teams Bottom Ironer Relationship Specialty Start Date End Date Norma Luke MD [address] [place] [phone] PCP - General Family Medicine 11/15/24
== END 2025-01-23 08:54 | disposition home or self-care (01) ==
LOC: RAD 08:53
PROVIDERS: PCP Family Medicine; Visit Provider Obstetrics & Gynecology
DX: M81.0 Age-related osteoporosis without current pathological fracture (principal); M85.88 Other specified disorders of bone density and structure, other site
CPT/HCPCS: 77080